=== PATIENT | male | born 1990 | race Caucasian/White ===

== ENCOUNTER 2021-07-13 14:22 | Emergency (ER) | payer OTHER ==
[2021-07-13 14:36] VITALS: BP 143/101; PULSE 118; TEMP 99.5
--- NOTE | 2021-07-13 15:20 | ED ---
URI HPI - General Chief Complaint: Upper Respiratory Infection Stated Complaint: Chest Congestion,Cough Time Seen by Provider: 07/13/21 15:05 Source: patient, RN notes reviewed Mode of arrival: ambulatory Limitations: no limitations - History of Present Illness Initial Comments: This a [id number] male presents emergency department with chief complaint of concerns of COVID-19. he states he was exposed he has mild cough congestion bodyaches no reported fever. Patient denies any chest pain or significant shortness of breath. Patient denies any GI symptoms or associated complaints. - Related Data Allergies Allergy/AdvReac Type Severity Reaction Status Date / Time No Known Allergies Allergy Verified 07/13/21 14:42 Review of Systems ROS Statement: Those systems with pertinent positive or pertinent negative responses have been documented in the HPI. ROS Other: All systems not noted in ROS Statement are negative. Past Medical History Past Medical History: No Reported History History of Any Multi-Drug Resistant Organisms: None Reported Past Surgical History: No Surgical Hx Reported Smoking Status: Never smoker Past Alcohol Use History: None Reported Past Drug Use History: None Reported General Exam Limitations: no limitations Course Vital Signs 07/13/21 14:33 Temperature 99.5 F Pulse Rate 118 H Respiratory 19 Rate Blood Pressure 143/101 O2 Sat by Pulse 100 Oximetry Medical Decision Making - Medical Decision Making Patient has a negative COVID-19. Patient has viral upper respiratory infection will be discharged to condition return parameters were discussed. - Lab Data Lab Results 07/13/21 Range/Units 14:39 Coronavirus (PCR) Not Detected (Not Detectd) Disposition Clinical Impression: Acute upper respiratory infection Disposition: HOME SELF-CARE Condition: Stable Instructions (If sedation given, give patient instructions): Upper Respiratory Infection (ED) Additional Instructions: Please return to the Emergency Department if symptoms worsen or any other concerns. Is patient prescribed a controlled substance at d/c from ED?: No Referrals: None,Stated [Primary Care Provider] - 1-2 days Time of Disposition: 15:20
[2021-07-13 15:37] VITALS: RESP 18
== END 2021-07-13 15:37 | disposition home or self-care (01) ==
LOC: EC 14:22
DX: J06.9 Acute upper respiratory infection, unspecified (principal); Z20.822 Contact with and (suspected) exposure to COVID-19
CPT/HCPCS: 87635; 99283

== ENCOUNTER 2022-03-06 23:49 | Emergency (ER) | payer OTHER ==
[2022-03-07] MEDS ORDERED: KETOROLAC 15 MG/ML 1 ML VIAL IVP STA (00:07)
[2022-03-07] MEDS ORDERED: SODIUM CHLORIDE 0.9% 1,000 ML IV STA (00:07)
[2022-03-07] MEDS ORDERED: ONDANSETRON 4 MG/2 ML VIAL IVP STA (00:07)
--- NOTE | 2022-03-07 00:54 | ED ---
Abdominal Pain HPI - General Chief Complaint: Abdominal Pain Stated Complaint: Back Pain, Abdominal Pain Time Seen by Provider: 03/06/22 23:58 Source: patient, family, RN notes reviewed Mode of arrival: ambulatory Limitations: no limitations - History of Present Illness Initial Comments: This is a 32-year-old male who presents to the emergency department for left flank pain and abdominal pain. Patient states that approximately an hour prior to arrival, he developed a sudden onset mid to lower back pain. The pain is also in the periumbilical region with radiation into the groin. He has now started to feel somewhat nauseous. Denies any history of kidney stones or similar symptoms in the past. Denies any urinary changes. Denies any fevers, chills, sore throat, cough, dyspnea, chest pain, palpitations, vomiting, diarrhea, or headaches. MD Complaint: abdominal pain, flank pain Location: periumbilical, L flank Associated Symptoms: nausea - Related Data Previous Rx's Medication Instructions Recorded HYDROcodone/APAP 5-325MG [[place] 1 tab PO Q6HR PRN 3 Days #12 tab 03/07/22 5-325] Ketorolac [Toradol] 10 mg PO Q6HR PRN #12 tab 03/07/22 Ondansetron Odt [Zofran Odt] 4 mg PO Q8HR PRN #20 tab 03/07/22 Tamsulosin [Flomax] 0.4 mg PO DAILY #15 cap 03/07/22 Allergies Allergy/AdvReac Type Severity Reaction Status Date / Time No Known Allergies Allergy Verified 03/06/22 23:54 Review of Systems ROS Statement: Those systems with pertinent positive or pertinent negative responses have been documented in the HPI. ROS Other: All systems not noted in ROS Statement are negative. Past Medical History Past Medical History: No Reported History History of Any Multi-Drug Resistant Organisms: None Reported Past Surgical History: No Surgical Hx Reported Past Psychological History: No Psychological Hx Reported Smoking Status: Never smoker Past Alcohol Use History: Occasional Past Drug Use History: None Reported General Exam Limitations: no limitations General appearance: alert, in no apparent distress Head exam: Present: atraumatic, normocephalic, normal inspection Respiratory exam: Present: normal lung sounds bilaterally. Absent: respiratory distress, wheezes, rales, rhonchi, stridor Cardiovascular Exam: Present: regular rate, normal rhythm, normal heart sounds. Absent: systolic murmur, diastolic murmur, rubs, gallop, clicks GI/Abdominal exam: Present: soft, normal bowel sounds. Absent: distended, tenderness, guarding, rebound, rigid Back exam: Present: CVA tenderness (L) Neurological exam: Present: alert, oriented X3, CN II-XII intact Psychiatric exam: Present: normal affect, normal mood Skin exam: Present: warm, dry, intact, normal color. Absent: rash Course Vital Signs 03/06/22 03/07/22 23:50 02:30 Temperature 97.5 F L 97.8 F Pulse Rate 71 70 Respiratory 20 18 Rate Blood Pressure 149/93 126/85 O2 Sat by Pulse 100 98 Oximetry Medical Decision Making - Medical Decision Making This is a 32-year-old male who presents to the emergency department for left flank pain and left lower abdominal pain. Lab work was nonactionable. Computed tomography scan of the abdomen and pelvis revealed an obstructing left ureteral calculus with left-sided hydronephrosis. Findings discussed with the patient. Prescription for Zofran, Toradol, [place], and Flomax sent to the pharmacy. Instructed him to take the Toradol and [place] up to every 6 hours as needed for pain. He should take the [place] at night until he knows how it affects him, as it may be sedating. He is also instructed to avoid taking Toradol with any other anti-inflammatories. Follow-up for urology provided. Advised he contact them Wednesday for an appointment. We discussed that if he is unable to pass the kidney stone on his own, he may need intervention with a lithotripsy. He noted substantial improvement in pain and nausea after administration of IV fluids, Zofran, and Toradol. Patient states that he feels stable for discharge home. Return precautions reviewed in depth, the patient is instructed to return to the emergency department with any new, worsening, or concerning symptoms. Patient verbalized understanding. This case was discussed in detail with the attending ED physician. Presentation, findings, and treatment plan discussed in detail as well. - Lab Data Result diagrams: 03/07/22 00:42 03/07/22 00:42 Lab Results 03/07/22 03/07/22 Range/Units 00:42 00:42 WBC 7.7 (3.8-10.6) k/uL RBC 5.68 (4.30-5.90) m/uL Hgb 17.1 (13.0-17.5) gm/dL Hct 50.5 (39.0-53.0) % MCV 88.9 (80.0-100.0) fL MCH 30.1 (25.0-35.0) pg MCHC 33.9 (31.0-37.0) g/dL RDW 12.7 (11.5-15.5) % Plt Count 293 (150-450) k/uL MPV 7.0 Neutrophils % 62 % Lymphocytes % 27 % Monocytes % 4 % Eosinophils % 6 % Basophils % 1 % Neutrophils # 4.7 (1.3-7.7) k/uL Lymphocytes # 2.1 (1.0-4.8) k/uL Monocytes # 0.3 (0-1.0) k/uL Eosinophils # 0.4 (0-0.7) k/uL Basophils # 0.0 (0-0.2) k/uL Sodium 143 (137-145) mmol/L Potassium 4.9 (3.5-5.1) mmol/L Chloride 103 (98-107) mmol/L Carbon Dioxide 28 (22-30) mmol/L Anion Gap 12 mmol/L BUN 15 (9-20) mg/dL Creatinine 1.12 (0.66-1.25) mg/dL Est GFR (CKD-EPI)AfAm >90 (>60 ml/min/1.73 sqM) Est GFR (CKD-EPI)NonAf 86 (>60 ml/min/1.73 sqM) Glucose 95 (74-99) mg/dL Calcium 9.6 (8.4-10.2) mg/dL Total Bilirubin 0.8 (0.2-1.3) mg/dL AST 48 (17-59) U/L ALT 33 (4-49) U/L Alkaline Phosphatase 76 (38-126) U/L Total Protein 9.4 H (6.3-8.2) g/dL Albumin 5.6 H (3.5-5.0) g/dL Amylase 102 (30-110) U/L Lipase 130 (23-300) U/L - Radiology Data Radiology results: report reviewed, image reviewed Disposition Clinical Impression: Left ureteral calculus, Hydronephrosis of left kidney Disposition: HOME SELF-CARE Instructions (If sedation given, give patient instructions): Kidney Stones (ED), Renal Colic (ED) Additional Instructions: Return to the emergency department with any new, worsening, or concerning symptoms. Take the [place] and Toradol as needed for pain. Do not take ibuprofen or other anti-inflammatories with the Toradol, you may take one or the other. Take the Zofran up to every 8 hours as needed for nausea and vomiting and take the Flomax once daily. Make sure you remain well hydrated. Contact urology as listed below for a follow-up appointment. Prescriptions: Tamsulosin [Flomax] 0.4 mg PO DAILY #15 cap HYDROcodone/APAP 5-325MG [[place] 5-325] 1 tab PO Q6HR PRN 3 Days #12 tab PRN Reason: Pain Ketorolac [Toradol] 10 mg PO Q6HR PRN #12 tab PRN Reason: Pain Ondansetron Odt [Zofran Odt] 4 mg PO Q8HR PRN #20 tab PRN Reason: Nausea And Vomiting Is patient prescribed a controlled substance at d/c from ED?: Yes When asked, does pt state using other controlled substances?: No If prescribed controlled substance>3 days was MAPS reviewed?: Prescribed <3 Days Referrals: None,Stated [Primary Care Provider] - 1-2 days Deshawn Topete MD [STAFF PHYSICIAN] - 1-2 days
[2022-03-07 01:07] LABS: Basophils % (A) 1 %; Eosinophils # (A) 0.4 k/uL (0-0.7); Eosinophils % (A) 6 %; HCT 50.5 % (39.0-53.0); HGB 17.1 gm/dL (13.0-17.5); Lymphocytes # (A) 2.1 k/uL (1.0-4.8); Lymphocytes % (A) 27 %; MCH 30.1 pg (25.0-35.0); MCHC 33.9 g/dL (31.0-37.0); MCV 88.9 fL (80.0-100.0); Monocytes # (A) 0.3 k/uL (0-1.0); Monocytes % (A) 4 %; Neutrophils # (A) 4.7 k/uL (1.3-7.7); Neutrophils % (A) 62 %; Platelet Count 293 k/uL (150-450); RBC 5.68 m/uL (4.30-5.90); RDW 12.7 % (11.5-15.5); WBC 7.7 k/uL (3.8-10.6)
--- NOTE | 2022-03-07 01:16 | CT ---
EXAMINATION TYPE: CT abdomen pelvis wo con DATE OF EXAM: 03/07/2022 COMPARISON: None HISTORY: Left flank pain that radiates to his LLQ and groin x 1-[address] DLP: 775.8 mGycm Automated exposure control for dose reduction was used. Images obtained from the diaphragm to the floor the pelvis with no contrast. Lung bases are clear. No pleural effusion. Heart size is normal. No pericardial effusion. Liver splee n stomach pancreas and gallbladder appear normal. The bile ducts are not dilated. There is no adrenal mass. There is left-sided hydronephrosis and proximal hydroureter. There is obstr ucting 4 mm calculus in the proximal left ureter. There is mild left-sided perinephric minimal edema. There is a 3 mm calculus lower pole left kidney. Right kidney shows no calculus. Distal ureters are not dilated. Bladder distends smoothly. No inguinal hernia. No free fluid in the p moira. No pelvic mass. Appendix appears normal. There is no mesenteric edema. No ascites or free air. No sign of a bowel obstruction. The lumbar vertebrae appear intact. No compression fracture. Bony pelvis is intact. The hip joints ar e intact. IMPRESSION: Obstructing calculus proximal left ureter with left-sided hydronephrosis. Small calculus lower pole l eft kidney. Normal appendix.
[2022-03-07 01:19] LABS: ALT 33 U/L (4-49); African American GFR (CKD) >90 (>60 ml/min/1.73 sqM); Amylase 102 U/L (30-110); Anion Gap 12 mmol/L; Blood Urea Nitrogen 15 mg/dL (9-20); Calcium 9.6 mg/dL (8.4-10.2); Carbon Dioxide 28 mmol/L (22-30); Chloride 103 mmol/L (98-107); Glucose 95 mg/dL (74-99); Lipase 130 U/L (23-300); Non-African American GFR(CKD) 86 (>60 ml/min/1.73 sqM); Potassium 4.9 mmol/L (3.5-5.1); Sodium 143 mmol/L (137-145)
[2022-03-07 01:20] LABS: AST 48 U/L (17-59); Albumin 5.6 g/dL (3.5-5.0); Alkaline Phosphatase 76 U/L (38-126); Total Bilirubin 0.8 mg/dL (0.2-1.3); Total Protein 9.4 g/dL (6.3-8.2)
[2022-03-07] MEDS ORDERED: ONDANSETRON 4 MG ODT STARTER PACK 2 TAB BTL PO STA (02:16)
[2022-03-07] MEDS ORDERED: IBUPROFEN 600 MG STARTER PACK 4 TAB BTL PO STA (02:16)
[2022-03-07] MEDS ORDERED: ACET/COD 300 MG/30 MG STARTER PACK 6 TAB BTL PO STA (02:16)
[2022-03-07 02:31] VITALS: BP 126/85; PULSE 70; RESP 18; TEMP 97.8
== END 2022-03-07 02:32 | disposition home or self-care (01) ==
LOC: EC 23:49
DX: N13.2 Hydronephrosis with renal and ureteral calculous obstruction (principal)
CPT/HCPCS: 36415; 80053; 82150; 83690; 85025; 74176; 99284; 96374; 96375; 96376; 96361; J2405; J1885; S0119

== ENCOUNTER → 2022-03-20 | Outpatient (CLI) | payer OTHER ==
--- NOTE | 2022-03-21 09:49 | US ---
EXAMINATION TYPE: US kidneys/renal and bladder DATE OF EXAM: 03/20/2022 COMPARISON: CT dated 03/07/2022 CLINICAL HISTORY: 32-year-old male N20.1 CALCULUS OF URETER. TECHNIQUE: Multiple sonographic images of the kidneys and bladder are obtained. FINDINGS: EXAM MEASUREMENTS: Right Kidney: 11.0 x 5.2 x 4.9 cm Left Kidney: 11.5 x 6.4 x 5.5 cm Right Kidney: No hydronephrosis or masses seen Left Kidney: Mild hydronephrosis Bladder: wnl Bilateral Jets seen: Yes IMPRESSION: Persistent mild left-sided hydronephrosis.
== END | disposition home or self-care (01) ==
LOC: RADUSWWP 15:28
PROVIDERS: ATTEND Urology
DX: N13.2 Hydronephrosis with renal and ureteral calculous obstruction (principal)
CPT/HCPCS: 76770

== ENCOUNTER → 2022-04-16 | Outpatient (CLI) | payer OTHER ==
--- NOTE | 2022-04-17 07:15 | US ---
EXAMINATION TYPE: US kidneys/renal and bladder DATE OF EXAM: 04/16/2022 COMPARISON: NONE CLINICAL HISTORY: N20.1 CALCULUS OF URETER. EXAM MEASUREMENTS: Right Kidney: 11.4 x 5.9 x 4.2 cm Left Kidney: 10.9 x 5.0 x 4.0 cm Right Kidney: No hydronephrosis or masses seen Left Kidney: Mild hydronephrosis Bladder: wnl Bilateral Jets seen: Yes No nephrolithiasis is seen. No masses are identified. The urinary bladder is anechoic. Bilateral u reteral jets are seen. IMPRESSION: Mild left-sided hydronephrosis.
--- NOTE | 2022-04-17 07:45 | XR ---
EXAMINATION TYPE: XR KUB DATE OF EXAM: 04/16/2022 HISTORY: Pain Comparison: None.Single KUB is submitted for interpretation. Findings: Right renal calculi: None Visualized. Right ureteral calculi: None Visualized. Left renal calculi: 3 mm calcific density left hemipelvis could reflect phlebolith versus distal ure teral calculus. Correlate clinically. Left ureteral calculi: None Visualized. Pelvic calcifications: None Visualized. Bowel gas pattern is unremarkable. No free air. No mass effects. IMPRESSION: 1. 3 mm calcific density left hemipelvis could reflect phlebolith versus distal ureteral calculus. Co rrelate clinically.
== END | disposition home or self-care (01) ==
LOC: RADUSWWP 16:05
PROVIDERS: ATTEND Urology
DX: N13.30 Unspecified hydronephrosis (principal)
CPT/HCPCS: 74018; 76770

== ENCOUNTER → 2022-05-04 | Outpatient (CLI) | payer OTHER ==
[2022-05-04 15:02] LABS: African American GFR (CKD) 128.7 (60.0-200.0); Anion Gap 10.3 mmol/L (10.00-18.00); BUN/Creat Ratio 13.33 Ratio (12.00-20.00); Calcium 9.3 mg/dL (8.7-10.3); Carbon Dioxide 27.7 mmol/L (20.0-27.5); Potassium 4.4 mmol/L (3.5-5.5)
[2022-05-04 15:41] LABS: Basophils # (A) 0.03 X 10*3/uL (0.00-0.10); Basophils % (A) 0.5 %; Eosinophils # (A) 0.36 X 10*3/uL (0.04-0.35); Eosinophils % (A) 6.2 %; HCT 47.8 % (39.6-50.0); Immature Grans, Automated 0.3 %; Lymphocytes # (A) 1.47 X 10*3/uL (0.90-5.00); Lymphocytes % (A) 25.1 %; MCH 29.3 pg (27.0-32.0); MCHC 33.5 g/dL (32.0-37.0); MCV 87.5 fL (80.0-97.0); Mean Platelet Volume 9.4 fL (9.5-12.2); Monocytes # (A) 0.44 X 10*3/uL (0.20-1.00); Monocytes % (A) 7.5 %; NRBC Per 100 WBC 0 /100 WBCS (0.0-0.0); Neutrophils # (A) 3.53 X 10*3/uL (1.80-7.70); Neutrophils % (A) 60.4 %; Platelet Count 269 X 10*3/uL (140-440); RBC 5.46 X 10*6/uL (4.40-5.60); RDW 12.7 % (11.5-14.5); WBC 5.85 X 10*3/uL (4.50-10.00)
== END | disposition home or self-care (01) ==
LOC: LABPAT 08:45
PROVIDERS: ATTEND Urology
DX: Z01.812 Encounter for preprocedural laboratory examination (principal); N20.1 Calculus of ureter
CPT/HCPCS: 80048; 85025

== ENCOUNTER → 2022-05-19 | Outpatient (CLI) | payer OTHER ==
--- NOTE | 2022-05-19 11:41 | XR ---
EXAMINATION TYPE: XR KUB DATE OF EXAM: 05/19/2022 COMPARISON: 04/16/2022 HISTORY: Pain TECHNIQUE: One view abdominal series FINDINGS: The osseous structures are intact. The bowel gas pattern is nonspecific. Arthropathy of the hips. No suspicious calcifications identified. Retained debris throughout the colon. IMPRESSION: 1. Small left hemipelvic calcification not seen with certainty on today's exam correlate clinically f or passage of recent stone.
== END | disposition home or self-care (01) ==
LOC: RADXRMAIN 11:18
PROVIDERS: ATTEND Urology
DX: N20.1 Calculus of ureter (principal)
CPT/HCPCS: 74018